=== PATIENT | male | born 1985 | race American Indian/Alaskan Native ===

== ENCOUNTER 2018-05-03 17:06 | Emergency (ER) | payer OTHER, MEDICAID ==
[2018-05-03 17:29] VITALS: BP 130/73
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
== END 2018-05-03 21:42 | disposition home or self-care (01) ==
LOC: ED 17:06
DX: S39.012A Strain of muscle, fascia and tendon of lower back, initial encounter (principal); S16.1XXA Strain of muscle, fascia and tendon at neck level, initial encounter; F12.10 Cannabis abuse, uncomplicated; V89.2XXA Person injured in unspecified motor-vehicle accident, traffic, initial encounter; Y93.89 Activity, other specified; Y92.89 Other specified places as the place of occurrence of the external cause; Y99.8 Other external cause status
CPT/HCPCS: 99282

== ENCOUNTER 2018-05-11 19:06 | Emergency (ER) | payer MEDICAID, OTHER ==
[2018-05-11 19:35] VITALS: BP 122/77
== END 2018-05-11 20:39 | disposition left against medical advice (07) ==
LOC: ED 19:06
DX: M54.2 Cervicalgia (principal); M54.5 Low back pain; F12.90 Cannabis use, unspecified, uncomplicated; Z53.21 Procedure and treatment not carried out due to patient leaving prior to being seen by health care provider

== ENCOUNTER 2018-11-25 08:44 | Emergency (ER) | payer MEDICAID ==
[2018-11-25 08:57] VITALS: BP 133/83
[2018-11-25] MEDS ORDERED: TRIMOX PO ONE (09:15)
[2018-11-25] MEDS ORDERED: MIRALAX 3350 PO NR (09:15)
[2018-11-25] MEDS ORDERED: IBUPROFEN PO ONE (09:15)
--- NOTE | 2018-11-25 09:17 | Emergency Department Report ---
Addendum entered and electronically signed by MANASA MIKE NP 11/25/18 09:43: 0943 per Farrukh pt did not want to wait on miralax from the pharmacy. He stated h e'd get at the pharmacy. Original Note: Minor Respiratory - HPI Chief Complaint: Back Pain/Injury Stated Complaint: SEVERR PAIN/HEAD ACHE Time Seen by Provider: 11/25/18 09:07 Duration: 5 Days Pain Location: Throat Severity: mild Minor Respiratory: Yes Sore Throat, Yes Able to Tolerate Fluids, No Rhinorrhea, No Ear Pain, No Cough, No Sick Contacts, No Hemoptysis, No Chest Pain, No Shortness of Breath, No Fever Other History: Patient is a 33-year-old -[place] male who comes to the ER today complaining of a sore throat. Patient also complains that since stopping his marijuana use 3 weeks ago he has had asked the stomach and nausea. He states that he had been using lead since summer heavily after his brother was killed. Patient states that he had a normal bowel movement about 3 days ago after eating some chips. But he feels like he's not been able to move his bowels. Patient has no major medical problems and is on no daily medicines. He has no primary care doctor. Patient has taken Motrin and that does not help his throat. ED Review of Systems ROS: Stated complaint: SEVERR PAIN/HEAD ACHE Other details as noted in HPI Comment: All other systems reviewed and negative Constitutional: see HPI. denies: chills, fever Eyes: as per HPI. denies: eye pain ENT: as per HPI, throat pain Respiratory: denies: no symptoms reported Gastrointestinal: as per HPI, nausea, constipation. denies: abdominal pain, diarrhea ED Past Medical Hx - Past Medical History Previous Medical History?: No Additional medical history: Transverse myelitis as a child with residual left sided weakness - Surgical History Past Surgical History?: No Additional Surgical History: trach as child - Social History Smoking Status: Never Smoker Substance Use Type: None - Medications Home Medications: Home Medications Medication Instructions Recorded Confirmed Last Taken Type Amoxicillin [Trimox CAP] 500 mg PO BID #20 capsule 11/25/18 Unknown Rx Minor Respiratory Exam - Exam General: Vital signs noted. No distress. Alert and acting appropriately. HEENT: Yes Pharyngeal Erythema, Yes Moist Mucous Membranes, No Pharyngeal Exudates (uvula red and inflammed), No Rhinorrhea, No Conjuctival Injection, No Frontal Tenderness, No Maxillary Tenderness Ear: Neither TM Bulge, Neither TM Erythema, Neither EAC Pain, Neither EAC Discharge Neck: Yes Supple, No Adenopathy Lungs: Yes Good Air Exchange, No Wheezes, No Ronchi, No Stridor, No Cough, No Labored Respirations, No Retractions, No Use of Accessory Muscles, No Other Abnormal Lung Sounds Heart: Yes Regular, No Murmur Abdomen: Yes Normal Bowel Sounds, No Tenderness (abd snt), No Peritoneal Signs Skin: No Rash, No Edema Neurologic: Alert and oriented, no deficits. Musculoskeletal: Unremarkable. ED Course Vital Signs 11/25/18 08:55 Temperature 98.5 F Pulse Rate 86 Respiratory 86 H Rate Blood Pressure 133/83 O2 Sat by Pulse 98 Oximetry ED Medical Decision Making - Medical Decision Making vss afebrile taking po non toxic dc home with oupt poc and follow up educated on use of THC and N/V Critical care attestation.: If time is entered above; I have spent that time in minutes in the direct care of this critically ill patient, excluding procedure time. ED Disposition Clinical Impression: Uvulitis, Nausea, Constipation Disposition: DC-01 TO HOME OR SELFCARE Is pt being admited?: No Does the pt Need Aspirin: No Condition: Stable Instructions: Uvulitis (ED), Constipation (ED), High Fiber Diet (ED) Additional Instructions: hydrate well with water meds as ordered today diet as tolerated increase fiber follow up pcp referral below continue to stay off weed Referrals: [facility] [Outside] - 3-5 Days Time of Disposition: 09:17
== END 2018-11-25 09:40 | disposition home or self-care (01) ==
LOC: ED 08:44
DX: K12.2 Cellulitis and abscess of mouth (principal); K59.00 Constipation, unspecified; R11.0 Nausea
CPT/HCPCS: 99282

== ENCOUNTER 2018-12-30 14:54 | Emergency (ER) | payer MEDICAID ==
[2018-12-30] MEDS ORDERED: IBUPROFEN PO ONE ×2 (16:56→19:14)
--- NOTE | 2018-12-30 16:56 | Emergency Department Report ---
Chief Complaint: Upper Respiratory Infection Stated Complaint: STOMACH VIRUS Time Seen by Provider: 12/30/18 16:53 - HPI History of Present Illness: pt states began a 2-3 days ago pt states he ate meatloaf and it began shortly after that nausea, diarrhea abd cramping (+) fever able to tolerate fluids no emesis, no urinary sx MSE screening note: Focused history and physical exam performed. Due to findings the following was ordered: CBC, CMP, lipase ED Disposition for MSE Condition: Stable
[2018-12-30 17:32] LABS: Basophils % (Auto) 0.2 % (0.0-1.8); Eosinophils % (Auto) 0.1 % (0.0-4.3); Hematocrit 42.9 % (35.5-45.6); Hemoglobin 14.1 gm/dl (11.8-15.2); Lymphocytes # (Auto) 0.3 K/mm3 (1.2-5.4); Mean Corpuscular HGB Conc 33 % (32-34); Mean Corpuscular Volume 96 fl (84-94); Monocytes # (Auto) 0.9 K/mm3 (0.0-0.8); Platelet Count 162 K/mm3 (140-440); Red Blood Count 4.46 M/mm3 (3.65-5.03); Red Cell Distribution Width 13.7 % (13.2-15.2)
[2018-12-30 17:45] LABS: Alanine Aminotransferase 14 units/L (7-56); Albumin 4.4 g/dL (3.9-5); BUN/Creatinine Ratio 11; Blood Urea Nitrogen 10 mg/dL (9-20); Calcium 9.1 mg/dL (8.4-10.2); Hemolysis Index 32
[2018-12-30] MEDS ORDERED: NACL 0.9% 1000 ML 1,000 ML IV ONE (19:38)
[2018-12-30] MEDS ORDERED: PROVENTIL IH ONE (19:38)
[2018-12-30] MEDS ORDERED: DELTASONE PO ONE (19:38)
--- NOTE | 2018-12-30 20:46 | Emergency Department Report ---
- General Chief Complaint: Upper Respiratory Infection Stated Complaint: STOMACH VIRUS Time Seen by Provider: 12/30/18 16:53 Source: patient Mode of arrival: Ambulatory Limitations: No Limitations - History of Present Illness Initial Comments: Patient is 33-year-old -Portuguese male with history of bronchitis states URI symptoms including cough postnasal drip head congestion the generalized malaise prior to abdominal pain, secondary complaint is abd after eating left over meat loaf, there is no n/v abd pain anddescribed as crampting aching pt is tolerating po intake and pass bowel movement without complication . Is MD Complaint: fever, cough, sore throat, rhinorrhea, nasal congestion, sinus pain Onset/Timin -: days(s) Severity: moderate Severity scale (0 -10): 4 Consistency: intermittent Improves With: nothing Worsens With: activity Context: sick contacts Associated Symptoms: chills, rhinorrhea, nasal congestion, sore throat, cough, ear pain - Related Data Previous Rx's Medication Instructions Recorded Last Taken Type Amoxicillin [Trimox CAP] 500 mg PO BID #20 capsule 11/25/18 Unknown Rx ALBUTEROL Inhaler(NF) [VENTOLIN 2 puff IH Q4H PRN #1 inha 12/30/18 Unknown Rx Inhaler(NF)] Azithromycin [Zithromax Z-AMANDA] 250 mg PO DAILY 5 Days #6 tab 12/30/18 Unknown Rx Benzonatate [Tessalon Perles] 100 mg PO Q8HR PRN #30 capsule 12/30/18 Unknown Rx Ibuprofen 800 mg PO TID PRN #30 tablet 12/30/18 Unknown Rx predniSONE [Deltasone] 40 mg PO QDAY 5 Days #10 tab 12/30/18 Unknown Rx Allergies Allergy/AdvReac Type Severity Reaction Status Date / Time No Known Allergies Allergy Verified 11/25/18 08:46 ED Review of Systems ROS: Stated complaint: STOMACH VIRUS Other details as noted in HPI Constitutional: chills, fever Eyes: denies: eye pain, eye discharge, vision change ENT: ear pain, throat pain, congestion Respiratory: cough, wheezing Cardiovascular: denies: chest pain, palpitations Endocrine: no symptoms reported Gastrointestinal: abdominal pain. denies: nausea, vomiting, diarrhea, cons tipation Genitourinary: denies: urgency, dysuria, frequency Musculoskeletal: denies: back pain, joint swelling, arthralgia Skin: denies: rash, lesions Neurological: denies: headache, weakness, paresthesias Psychiatric: denies: anxiety, depression Hematological/Lymphatic: denies: easy bleeding, easy bruising ED Past Medical Hx - Past Medical History Previous Medical History?: Yes Additional medical history: Transverse myelitis as a child with residual left sided weakness - Surgical History Past Surgical History?: Yes Additional Surgical History: trach as child - Social History Smoking Status: Never Smoker Substance Use Type: None - Medications Home Medications: Home Medications Medication Instructions Recorded Confirmed Last Taken Type Amoxicillin [Trimox CAP] 500 mg PO BID #20 capsule 11/25/18 Unknown Rx ALBUTEROL Inhaler(NF) [VENTOLIN 2 puff IH Q4H PRN #1 inha 12/30/18 Unknown Rx Inhaler(NF)] Azithromycin [Zithromax Z-AMANDA] 250 mg PO DAILY 5 Days #6 tab 12/30/18 Unknown Rx Benzonatate [Tessalon Perles] 100 mg PO Q8HR PRN #30 capsule 12/30/18 Unknown Rx Ibuprofen 800 mg PO TID PRN #30 tablet 12/30/18 Unknown Rx predniSONE [Deltasone] 40 mg PO QDAY 5 Days #10 tab 12/30/18 Unknown Rx ED Physical Exam - General Limitations: No Limitations General appearance: alert, in no apparent distress - Head Head exam: Present: atraumatic, normocephalic - Eye Eye exam: Present: normal appearance, PERRL, EOMI Pupils: Present: normal accommodation - ENT ENT exam: Present: mucous membranes moist, TM's normal bilaterally - Expanded ENT Exam Expanded Ear exam: Present: normal external inspection Mouth exam: Present: normal external inspection. Absent: trismus Teeth exam: Present: normal inspection Throat exam: Positive: tonsillar erythema, tonsillomegaly. Negative: tonsillar exudate, R peritonsillar mass, L peritonsillar mass - Neck Neck exam: Present: normal inspection, full ROM. Absent: tenderness, meningismus, lymphadenopathy, thyromegaly - Respiratory Respiratory exam: Present: normal lung sounds bilaterally, chest wall tenderness. Absent: respiratory distress, wheezes, stridor - Cardiovascular Cardiovascular Exam: Present: regular rate, normal rhythm, normal heart sounds. Absent: systolic murmur, diastolic murmur, rubs, gallop - GI/Abdominal GI/Abdominal exam: Present: soft, normal bowel sounds. Absent: tenderness, rebound, bruit, hernia - Rectal Rectal exam: Present: deferred - Extremities Exam Extremities exam: Present: normal inspection, full ROM, normal capillary refill. Absent: tenderness, pedal edema, joint swelling, calf tenderness - Back Exam Back exam: Present: normal inspection, full ROM. Absent: tenderness, CVA tenderness (R), CVA tenderness (L), muscle spasm, paraspinal tenderness, vertebral tenderness, rash noted - Neurological Exam Neurological exam: Present: alert, oriented X3, CN II-XII intact, normal gait, motor sensory deficit. Absent: reflexes normal - Psychiatric Psychiatric exam: Present: normal affect, normal mood - Skin Skin exam: Present: warm, dry, intact, normal color. Absent: rash ED Course Vital Signs 12/30/18 16:53 Temperature 100.7 F H Pulse Rate 100 H Respiratory 16 Rate Blood Pressure 115/74 O2 Sat by Pulse 99 Oximetry ED Medical Decision Making - Lab Data Result diagrams: 12/30/18 17:09 12/30/18 17:09 Labs 12/30/18 12/30/18 17:09 17:09 WBC 5.6 RBC 4.46 Hgb 14.1 Hct 42.9 MCV 96 H MCH 32 MCHC 33 RDW 13.7 Plt Count 162 Lymph % (Auto) 6.0 L Kings[place] % (Auto) 16.0 H Eos % (Auto) 0.1 Baso % (Auto) 0.2 Lymph # 0.3 L [place] # 0.9 H Eos # 0.0 Baso # 0.0 Seg Neutrophils % 77.7 H Seg Neutrophils # 4.4 Sodium 133 L Potassium 4.6 Chloride 95.9 L Carbon Dioxide 25 Anion Gap 17 BUN 10 Creatinine 0.9 Estimated GFR > 60 BUN/Creatinine Ratio 11 Glucose 95 Calcium 9.1 Total Bilirubin 0.50 AST 22 ALT 14 Alkaline Phosphatase 52 Total Protein 7.2 Albumin 4.4 Albumin/Globulin Ratio 1.6 Lipase 26 - Radiology Data Radiology results: report reviewed, image reviewed normal chest xray no infiltrate no opacities - Medical Decision Making this is URI , pt advise symptoms are improved cxr normal no infiltrate no opacities no sob no wheezing plan: albuterol, prednisone, azithromycin, Tessalon, follow up with pcp in 2 days given referral to [facility] pt verbalized agreement and understanding with discharge plan. Critical care attestation.: If time is entered above; I have spent that time in minutes in the direct care of this critically ill patient, excluding procedure time. ED Disposition Clinical Impression: Bronchitis URI (upper respiratory infection) Qualifiers: URI type: unspecified viral URI Qualified Code(s): J06.9 - Acute upper respiratory infection, unspecified Disposition: - TO HOME OR SELFCARE Is pt being admited?: No Does the pt Need Aspirin: No Condition: Stable Instructions: Chronic Bronchitis (ED), Upper Respiratory Infection (ED) Prescriptions: predniSONE [Deltasone] 40 mg PO QDAY 5 Days #10 tab Ibuprofen 800 mg PO TID PRN #30 tablet PRN Reason: pain Benzonatate [Tessalon Perles] 100 mg PO Q8HR PRN #30 capsule PRN Reason: Cough ALBUTEROL Inhaler(NF) [VENTOLIN Inhaler(NF)] 2 puff IH Q4H PRN #1 inha PRN Reason: shortness of breath wheezing Azithromycin [Zithromax Z-AMANDA] 250 mg PO DAILY 5 Days #6 tab [facility]: [facility]Primary Care Provider[facility] - 3-5 Days Forms: Work/School Release Form(ED) Time of Disposition: 20:58
--- NOTE | 2018-12-30 20:52 | XRay Report ---
PROCEDURE: XR CHEST ROUTINE 2V TECHNIQUE: PA and lateral chest radiographs were obtained. HISTORY: cough fever COMPARISONS: None. FINDINGS: Heart: Normal. Mediastinum/Vessels: Normal. Lungs/Pleural space: Normal. Bony thorax: No acute osseous abnormality. IMPRESSION: Normal examination. This document is electronically signed by Jerry Forbes MD., December 30 2018 08:50:30 PM ET
[2018-12-30 21:13] VITALS: BP 118/76
== END 2018-12-30 21:14 | disposition home or self-care (01) ==
LOC: ED 14:54
DX: J40 Bronchitis, not specified as acute or chronic (principal); J06.9 Acute upper respiratory infection, unspecified
CPT/HCPCS: 36415; 71046; 80053; 83690; 85025; 94640; 99284; J7030; J7512

== ENCOUNTER 2020-06-27 17:18 | Emergency (ER) | payer MEDICAID | END 2020-06-27 19:55 | disposition left against medical advice (07) | LOC: ED 17:18 | DX: K08.89 Other specified disorders of teeth and supporting structures (principal); Z53.21 Procedure and treatment not carried out due to patient leaving prior to being seen by health care provider ==

== ENCOUNTER 2022-03-19 15:40 | Emergency (ER) | payer MEDICAID ==
--- NOTE | 2022-03-19 16:27 | XRay Report ---
CHEST 2 VIEWS INDICATION / CLINICAL INFORMATION: SOB. COMPARISON: 2 views of the chest from 12/30/2018. FINDINGS: SUPPORT DEVICES: None. HEART / MEDIASTINUM: No significant abnormality. LUNGS / PLEURA: No significant pulmonary abnormality. No significant pleural effusion. No pneumothora x. ADDITIONAL FINDINGS: No significant additional findings. IMPRESSION: 1. No acute abnormality of the chest. Signer Name: Edgar Hewitt MD Signed: 03/19/2022 4:22 PM Workstation Name: [id number]
--- NOTE | 2022-03-19 16:55 | Emergency Department Report ---
Minor Respiratory - HPI Chief Complaint: Dyspnea/Respdistress Stated Complaint: SHORT OF BREATH Time Seen by Provider: 03/19/22 16:54 Duration: 2 Days Pain Location: Chest Severity: mild Minor Respiratory: Yes Able to Tolerate Fluids, Yes Hemoptysis, No Rhinorrhea, No Sore Throat, No Ear Pain, No Cough, No Sick Contacts, No Chest Pain, No Shortness of Breath, No Fever Other History: Patient is a 36-year-old male that comes to the ER with URI symptoms. He states that he has had fatigue, malaise, chills. He did not get COVID shots. He has not been COVID tested. He is concerned that he has COVID. Patient educated on COVID etiology, presentation and testing/treatment. Patient has no hypoxia. He has no shortness of breath with ambulation. He has no tachycardia or hypotension. ED Review of Systems ROS: Stated complaint: SHORT OF BREATH Other details as noted in HPI Comment: All other systems reviewed and negative ED Past Medical Hx - Past Medical History Previous Medical History?: Yes Additional medical history: Transverse myelitis as a child with residual left sided weakness - Surgical History Past Surgical History?: Yes Additional Surgical History: trach as child - Family History Family history: no significant - Social History Smoking Status: Never Smoker Substance Use Type: Marijuana - Medications Home Medications: Home Medications Medication Instructions Recorded Confirmed Last Taken Type Amoxicillin [Trimox CAP] 500 mg PO BID #20 capsule 11/25/18 Unknown Rx ALBUTEROL Inhaler(NF) [VENTOLIN 2 puff IH Q4H PRN #1 inha 12/30/18 Unknown Rx Inhaler(NF)] Azithromycin [Zithromax Z-AMANDA] 250 mg PO DAILY 5 Days #6 tab 12/30/18 Unknown Rx Benzonatate [Tessalon Perles] 100 mg PO Q8HR PRN #30 capsule 12/30/18 Unknown Rx Ibuprofen [Ibuprofen 800] 800 mg PO TID PRN #30 tablet 12/30/18 Unknown Rx predniSONE [Deltasone] 40 mg PO QDAY 5 Days #10 tab 12/30/18 Unknown Rx Minor Respiratory Exam - Exam General: Vital signs noted. No distress. Alert and acting appropriately. HEENT: Yes Moist Mucous Membranes, No Pharyngeal Erythema, No Pharyngeal Exudates, No Rhinorrhea, No Conjuctival Injection, No Frontal Tenderness, No Maxillary Tenderness Ear: Neither TM Bulge, Neither TM Erythema, Neither EAC Pain, Neither EAC Discharge Neck: Yes Supple, No Adenopathy Lungs: Yes Good Air Exchange, No Wheezes, No Ronchi, No Stridor, No Cough, No Labored Respirations, No Retractions, No Use of Accessory Muscles, No Other Abnormal Lung Sounds Heart: Yes Regular, No Murmur Abdomen: Yes Normal Bowel Sounds, No Tenderness, No Peritoneal Signs Skin: No Rash, No Edema Neurologic: Alert and oriented, no deficits. Musculoskeletal: Unremarkable. ED Course Vital Signs 03/19/22 15:42 Temperature 99.2 F Pulse Rate 100 H Respiratory 16 Rate Blood Pressure 106/76 [Left] O2 Sat by Pulse 99 Oximetry ED Medical Decision Making - Radiology Data Radiology results: report reviewed, image reviewed No acute process - Medical Decision Making Vital Signs (72 hours) 03/19/22 03/19/22 15:42 17:06 Temperature 99.2 F 97 F L Pulse Rate 100 H 99 H Respiratory 16 18 Rate Blood Pressure 108/82 Blood Pressure 106/76 [Left] O2 Sat by Pulse 99 100 Oximetry Ambulatory, taking p.o. in no acute distress. X-ray normal No tachycardia, hypotension or fever. Patient being discharged home with discharge plan of care including diet, activity, medication and follow-up. He verbalizes understanding of plan of care. - Differential Diagnosis URI Critical care attestation.: If time is entered above; I have spent that time in minutes in the direct care of this critically ill patient, excluding procedure time. ED Disposition Clinical Impression: Viral illness Disposition: HOME / SELF CARE / HOMELESS Is pt being admited?: No Does the pt Need Aspirin: No Condition: Stable Instructions: Viral Respiratory Infection, [id number] Additional Instructions: Stay well-hydrated with water Motrin or Tylenol for pain Advance your diet as tolerated. Start with bananas rice applesauce and toast and then advance. Work and activity as tolerated Follow-up with PCP in 48 hours if you are not feeling better. Have given you referral below Referrals: GRACE ROMERO MD [Staff Physician] - 3-5 Days Forms: Work/School Release Form(ED) Time of Disposition: 16:56
[2022-03-19 17:07] VITALS: BP 108/82
== END 2022-03-19 17:10 | disposition home or self-care (01) ==
LOC: ED 15:40
DX: B34.9 Viral infection, unspecified (principal); Z98.890 Other specified postprocedural states
CPT/HCPCS: 71046; 99283